=== PATIENT | female | born 1995 | race Caucasian/White ===

== ENCOUNTER 2018-07-06 20:30 | Emergency (ER) | payer OTHER ==
[~2018-07-06] VITALS: Ht 167.6 cm; Wt 59.0 kg
--- NOTE | 2018-07-06 20:30 | NUR ---
BILATERAL KNEE PAIN X 3 MONTHS, PAIN GETTING WORSE X FEW DAYS, MOTRIN FOR PAIN. NAD NOTED. VSS. RR EVEN AND UNLABORED.
[2018-07-06 22:27] VITALS: BP 121/71
== END 2018-07-06 22:27 | disposition home or self-care (01) ==
LOC: ER 20:38
DX: M25.562 Pain in left knee (principal); M25.561 Pain in right knee; F10.10 Alcohol abuse, uncomplicated; Y90.9 Presence of alcohol in blood, level not specified
CPT/HCPCS: 73564-TC